=== PATIENT | male | born 1950 | race Caucasian/White ===

== ENCOUNTER 2024-08-06 03:51 | Emergency (ER) | payer MEDICAID, OTHER ==
[~2024-08-06] VITALS: Ht 200.7 cm; Wt 139.0 kg
--- NOTE | 2024-08-06 04:26 | ED.PDOC ---
History of Present Illness HPI Comments 73 y/o M, with a history of CHF, DMII w/neuropathy, HTN, and tobacco and walker/cane use, is BIBA for c/o left-rib and knee pain, with associated swelling to left-knee, s/p mechanical trip and fall, today. Patient endorses on sustaining a mechanical trip and fall at home, this morning. He comments on losing his balance and hitting both his recliner and floor on the way down, with no LOC or additional injuries reported. Patient refutes also any current blood thinner use in addition to having any prior symptoms. He denies any weakness, numbness, tingling, dizziness, or other associated symptoms or modifiers at this time. Chief Complaint: Fall Injury Time Seen by MD: 04:20 Primary Care Provider: GUNNAR REMEMBER Reviewed Notes: Nurses Notes, Correctional Officer Chief Notes, Medications, Allergies Allergies: Coded Allergies: Cephalexin (Unverified Allergy, Intermediate, 04/01/15) Information Source: Patient, Emergency Med Personnel Mode of Arrival: EMS Severity: Moderate Timing: Hours Duration: Since onset Prehospital treatment: 12 Lead EKG, Accucheck, Social Human Services Assistants Past Medical History PAST MEDICAL HISTORY: CHF, DM (type II w/neuropathy ), HTN Family History Family History: Unobtainable Social History Smoker: Cigarettes, Less Than 1 Pack/Day Alcohol: Denies ETOH Use Drugs: Denies Drug Use Lives In: Home Other Walker/cane use Musculoskeletal: reports: others (left-rib pain, left-knee pain with swelling ) All Other Systems: Reviewed and Negative (Comprehensive review of systems are negative unless otherwise stated in HPI or above ) Physical Exam General Appearance: No Apparent Distress, Obese HEENT: Normal ENT Inspection, Pharynx Normal, TMs Normal Neck: Full Range of Motion, Non-Tender, Normal, Normal Inspection Respiratory: Chest Non-Tender, Lungs Clear, No Accessory Muscle Use, No Respiratory Distress, Normal Breath Sounds Cardiovascular: No Edema, No JVD, No Murmur, No Gallop, Normal Peripheral Pulses, Regular Rate/Rhythm Breast Exam: Deferred Gastrointestinal: No Organomegaly, Non Tender, No Pulsatile Mass, Normal Bowel Sounds, Soft Genitalia: Deferred Pelvic: Deferred Rectal: Deferred Extremities: No calf tenderness, Normal capillary refill, No pedal edema, Swelling (left knee ), Tender (left knee ) Musculoskeletal : Location: Left Extremity Location: Chest (chest wall ), Knee Apperance: Normal, Tenderness Neurologic: Alert, geophysical laboratory chief II-XII nml as Tested, No Motor Deficits, Normal Affect, Normal Mood, No Sensory Deficits Cerebellar Function: Normal Reflexes: Normal Skin: Dry, Normal Color, Warm Lymphatic: No Adenopathy Was a procedure done? Was a procedure done?: No Differential Dx Considerations may include: fractures, dislocations, contusions, bruising, musculoskeletal pain, sprain X-Ray, Labs, Meds, VS Vital Signs Date Time Temp Pulse Resp B/P (MAP) Pulse Ox O2 Delivery O2 Flow Rate FiO2 08/06/24 03:51 98.6 66 18 125/80 (95) 97 98.6 Lab Test 08/06/24 04:32 Range/Units Urine Color Light-yellow Yellow Urine Clarity Clear Clear Urine pH 7.0 5.0-9.0 Urine Specific [place] 1.009 1.001-1.035 Urine Protein Negative Negative Urine Ketones Negative Negative Urine Blood Negative Negative /uL Urine Nitrite Negative Negative Urine Bilirubin Negative Negative Urine Urobilinogen Normal Negative mg/dL Urine Leukocyte Esterase Negative Negative /uL Urine RBC <1 0 - 3 /hpf Urine Microscopic WBC < 1 0-3 /HPF Urine Squamous Epithelial Cells Few <5 /hpf Urine Bacteria None seen None Seen /hpf Urine Glucose Normal Normal mg/dL [place] [address] Ph: [phone] DIAGNOSTIC IMAGING Diagnostic Imaging Report : [id number] Signed PATIENT: TUSHAR MATHIS ACCT: [id number] UNIT: [id number] : 1950 LOC: ER ROOM / BED: / AGE / SEX: 73 / M ADM STATUS: REG ER SERVICE ORDERING PHYSICIAN: RASHAWN ALLEN MD PROCEDURE(s): CX2CT - CHEST WITHOUT CONTRAST REASON: c/f multiple rib fractures ORDER NUMBER(s): [id number], ACCESSION NUMBER(s): [id number] EXAM: CT Chest Without Intravenous Contrast CLINICAL INDICATION: c/f multiple rib fractures TECHNIQUE: Axial computed tomography images of the chest without intravenous contrast. This CT exam was performed using one or more of the following dose reduction techniques: automated exposure control, adjustment of the mA and/or kV according to patient size, and/or use of iterative reconstruction technique. CONTRAST: RADIATION DOSE: CTDIvol = 29.14 mGy, DLP = 1482.23 mGy-cm COMPARISON: None FINDINGS: ARTIFACTS: Motion artifact. LUNGS AND PLEURAL SPACES: Unremarkable. No focal consolidation, pneumothorax or pleural effusion. HEART: Unremarkable. No cardiomegaly. No significant pericardial effusion. No significant coronary artery calcifications. THYROID: Multiple hypodense lesions of the thyroid gland. Further evaluation with targeted ultrasound is recommended. BONES/JOINTS: Cortical irregularity of the posterior left 6th, 7th, 8th and 9th ribs concerning for nondisplaced fractures. No dislocation. SOFT TISSUES: Unremarkable. VASCULATURE: Scattered calcified atherosclerotic disease of aorta. No thoracic aortic aneurysm. LYMPH NODES: Unremarkable. No enlarged lymph nodes. OTHER FINDINGS: . IMPRESSION: 1. No focal consolidation, pneumothorax or pleural effusion. 2. Multiple hypodense lesions of the thyroid gland. Further evaluation with targeted ultrasound is recommended. Mild cardiomegaly. 3. Cortical irregularity of the posterior left 6th, 7th, 8th and 9th ribs concerning for nondisplaced fractures. ATED BY: ALEXANDRA TILLEY MD DICTATED DATE/TIME: 08/06/24516 SIGNED BY: ALEXANDRA TILLEY MD SIGNED DATE/TIME: 08/06/24516 CC: [place] [address] Ph: [phone] DIAGNOSTIC IMAGING Diagnostic Imaging Report : [id number] Signed PATIENT: TUSHAR MATHIS ACCT: [id number] UNIT: [id number] : 1950 LOC: ER ROOM / BED: / AGE / SEX: 73 / M ADM STATUS: REG ER SERVICE ORDERING PHYSICIAN: RASHAWN ALLEN MD PROCEDURE(s): LKNE3 - L KNEE 3V XRAY REASON: fall ORDER NUMBER(s): [id number], ACCESSION NUMBER(s): [id number] EXAM: XY L KNEE 3V XRAY HISTORY: fall COMPARISON: None TECHNIQUE: 2 views of the left knee were performed. FINDINGS: Acute depressed fracture of the medial tibial plateau. There is lateral tibial plateau fracture. Lipohemarthrosis. IMPRESSION: 1. Acute depressed medial tibial plateau fracture and lateral tibial plateau fracture. Lipohemarthrosis. ATED BY: LEOBARDO FRIEDMAN MD DICTATED DATE/TIME: 08/06/24507 SIGNED BY: LEOBARDO FRIEDMAN MD SIGNED DATE/TIME: 08/06/24507 CC: Time of 1ST Reevaluation: 04:50 Reevaluation 1ST: Unchanged Patient Education/Counseling: Diagnosis, Treatment Family Education/Counseling: No Family Present Departure 1 Departure Time of Disposition: 05:27 (Patient with multiple tibial plateau fractures as well as multiple left rib fractures. We will admit patient for further workup and expert consultation) Impression: Primary Impression: Multiple rib fractures Qualified Codes: S22.42XA - Multiple fractures of ribs, left side, initial encounter for closed fracture Additional Impression: Tibial plateau fracture, left Qualified Codes: S82.142A - Displaced bicondylar fracture of left tibia, ini tial encounter for closed fracture Disposition: ADMITTED INPATIENT Admit to: Med Surg Condition: Serious Critical Care Note Critical Care Time?: No Stability Stability form required: No Heart Score Heart Score: Heart Score Response (Comments) Value History N/A 0 EKG N/A 0 Age N/A 0 Risk Factors N/A 0 Troponin N/A 0 Total 0 I personally scribed for RASHAWN ALLEN MD ([email or web address]) on 08/06/24 at 04:26. Electronically submitted by Deion Gregg ([email or web address]). I personally scribed for RASHAWN ALLEN MD ([email or web address]) on 08/06/24 at 05:27. Electronically submitted by Deion Gregg ([email or web address]). RASHAWN ALLEN MD Aug 06, 2024 04:26
[2024-08-06 04:49] LABS: Urine Bacteria None Seen /hpf (None Seen)
[2024-08-06 04:55] LABS: Urine Blood Negative /uL (Negative); Urine Clarity Clear (Clear); Urine Color Light-Yellow (Yellow); Urine Protein, UAD Negative (Negative); Urine Specific Gravity 1.009 (1.001-1.035); Urine Squamous Epithelial Cell FEW /hpf (<5); Urine Urobilinogen Normal (Negative); Urine WBC < 1 /HPF (0-3)
[2024-08-06 04:58] VITALS: PULSE 68; RESP 17; O2SAT 96
--- NOTE | 2024-08-06 05:10 | DVH ---
EXAM: XY L KNEE 3V XRAY HISTORY: fall COMPARISON: None TECHNIQUE: 2 views of the left knee were performed. FINDINGS: Acute depressed fracture of the medial tibial plateau. There is lateral tibial plateau fracture. Lip ohemarthrosis. IMPRESSION: 1. Acute depressed medial tibial plateau fracture and lateral tibial plateau fracture. Lipohemarthros is.
[2024-08-06] MEDS: HYDROcodone-ACET 5/325MG TAB PO ONE (05:15)
--- NOTE | 2024-08-06 05:19 | DVH ---
EXAM: CT Chest Without Intravenous Contrast CLINICAL INDICATION: c/f multiple rib fractures TECHNIQUE: Axial computed tomography images of the chest without intravenous contrast. This CT exam was performed using one or more of the following dose reduction techniques: automated exposure cont rol, adjustment of the mA and/or kV according to patient size, and/or use of iterative reconstruction technique. CONTRAST: RADIATION DOSE: CTDIvol = 29.14 mGy, DLP = 1482.23 mGy-cm COMPARISON: None FINDINGS: ARTIFACTS: Motion artifact. LUNGS AND PLEURAL SPACES: Unremarkable. No focal consolidation, pneumothorax or pleural effusion. HEART: Unremarkable. No cardiomegaly. No significant pericardial effusion. No significant forrester ry artery calcifications. THYROID: Multiple hypodense lesions of the thyroid gland. Further evaluation with targeted ultraso und is recommended. BONES/JOINTS: Cortical irregularity of the posterior left 6th, 7th, 8th and 9th ribs concerning for nondisplaced fractures. No dislocation. SOFT TISSUES: Unremarkable. VASCULATURE: Scattered calcified atherosclerotic disease of aorta. No thoracic aortic aneurysm. LYMPH NODES: Unremarkable. No enlarged lymph nodes. OTHER FINDINGS: . IMPRESSION: 1. No focal consolidation, pneumothorax or pleural effusion. 2. Multiple hypodense lesions of the thyroid gland. Further evaluation with targeted ultrasound is recommended. Mild cardiomegaly. 3. Cortical irregularity of the posterior left 6th, 7th, 8th and 9th ribs concerning for nondisplace d fractures.
[2024-08-06] MEDS: SODIUM CHLORIDE 0.9% 1,000 ML IV ONE (05:30)
[2024-08-06] MEDS: ONDANSETRON HCL 4 MG/2 ML VIAL IV ONE ×2 (05:30→10:25)
--- NOTE | 2024-08-06 06:46 | DVHINCON2 ---
AMIRA FLEMING NP 08/06/24 0646: Date of service: Aug 06, [address] Armenta Reason for Consultation Medical management History of Present Illness 73-year-old male with past medical history of CHF, DM, hypertension presents with complaints of left-sided thoracic and left knee injury s/p mechanical fall. Patient endorsed he was using his front wheel walker when he tripped hitting himself on his recliner and on the floor. Patient endorses swelling and pain to the left knee. During the emergency department evaluation x-ray of the left knee was positive for an acute left tibial plateau fracture. CT of the chest was also positive for multiple left rib fractures. At this time patient denies fevers, chills, syncope, LOC, dizziness, chest pain, shortness of breath, abdominal pain, nausea, vomiting, hematemesis, hematochezia, melena. Past Medical History CHF, DM, hypertension Allergies: Coded Allergies: Cephalexin (Unverified Allergy, Intermediate, 04/01/15) Review of Systems 10 systems reviewed and negative except as per HPI Vital Signs Vital Signs Date Time Temp Pulse Resp B/P (MAP) Pulse Ox O2 Delivery O2 Flow Rate FiO2 08/06/24 04:58 68 17 96 Nasal Cannula* 2 28 08/06/24 04:30 98.6 132/66 (88) 98.6 Physical Exam GENERAL: Patient appearing stated age, in mild acute distress. HEENT: Pupils equal and reactive to light and accommodation. Extraocular muscles intact. Mucous membranes moist. Conjunctivae pink. Anicteric sclerae. LUNGS: Bilateral air entry. No wheezes, rhonchi or rales. HEART: Regular rate and rhythm. Normal S1 and S2. ABDOMEN: BS normoactive, soft, and nondistended. No CVA tenderness. Left- sided thoracic tenderness. EXTREMITIES: No clubbing, cyanosis, edema. No calf tenderness. Pedal pulses 2+. Significant left knee joint swelling NEUROLOGICAL: The patient is alert and oriented times 3. CN II-XII intact. No focal deficits on gross sensory or motor examination. Labs/Diagnostic Data Labs Test 08/06/24 04:32 Range/Units Urine Color Light-yellow Yellow Urine Clarity Clear Clear Urine pH 7.0 5.0-9.0 Urine Specific [place] 1.009 1.001-1.035 Urine Protein Negative Negative Urine Ketones Negative Negative Urine Blood Negative Negative /uL Urine Nitrite Negative Negative Urine Bilirubin Negative Negative Urine Urobilinogen Normal Negative mg/dL Urine Leukocyte Esterase Negative Negative /uL Urine RBC <1 0 - 3 /hpf Urine Microscopic WBC < 1 0-3 /HPF Urine Squamous Epithelial Cells Few <5 /hpf Urine Bacteria None seen None Seen /hpf Urine Glucose Normal Normal mg/dL Assessment Acute left tibial Plateau fracture Multiple rib fractures Falls Plan/Recommendation Patient case was discussed in detail with [facility] designated orthopedic surgeon. Left lower extremity will be placed in knee immobilizer. [facility] upper caser has been consulted to arrange for temporary shelter facility placement. Acute fracture will be managed on an outpatient basis by orthopedic surgeon. Plan of care was discussed in detail with the patient who is in agreement with skilled nurse and facility placement. Plan discussed with: Patient ARNULFO BATEMAN MD 08/06/24 1616: Allergies: Coded Allergies: Cephalexin (Unverified Allergy, Intermediate, 04/01/15) Plan/Recommendation Patient's chart is reviewed and discussed with the nurse practitioner. I agree with the nurse practitioner's evaluation, documentation, assessment and care plan as outlined. AMIRA FLEMING NP Aug 06, 2024 06:46 ARNULFO BATEMAN MD Aug 06, 2024 16:16
[2024-08-06 07:30] VITALS: PULSE 74; RESP 16; O2SAT 97
[2024-08-06] MEDS: MORPHINE SULFATE 4 MG/ML SYR/VIAL IV ONE (10:25)
--- NOTE | 2024-08-06 11:55 | DVHINCON2 ---
Date of service: Aug 06, 2024 Reason for Consultation Left tibia plateau fracture History of Present Illness Mr. 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 Patient reports that he was using his walker to move around when his walker hit a chair causing him to trip and land onto his left knee and has been experiencing severe pain in the inability to bear weight on that side since the incident. Patient was brought to the emergency department where he was found to have a left tibial plateau fracture. Patient is otherwise feeling well denying any head trauma, loss of consciousness, chest pain, shortness of breath, nausea, vomiting, fever, or chills. Past Medical History Hypertension, CHF, and diabetes Past Surgical History Denies Family History Non contributory Social History Patient denies smoking, EtOH, or illicit substance abuse Allergies: Coded Allergies: Cephalexin (Unverified Allergy, Intermediate, 04/01/15) Review of Systems 10 point review of systems negative except as per HPI Vital Signs Vital Signs Date Time Temp Pulse Resp B/P (MAP) Pulse Ox O2 Delivery O2 Flow Rate FiO2 08/06/24 10:46 81 16 120/54 08/06/24 09:04 96 08/06/24 07:30 Room Air* 0 21 08/06/24 07:30 98.7 98.7 Physical Exam General appearance: A&O x4 in no acute distress HEENT: Normal ENT inspection, pharynx normal, TMs normal Neck: Full range of motion, nontender, normal inspection Respiratory: Chest nontender, without accessory muscle use, no respiratory distress Cardiovascular: No edema, no JVD, normal peripheral pulses Gastrointestinal: Soft, nontender, no organomegaly. Musculoskeletal: Left knee range of motion grossly limited with pain on slight movement, in knee immobilizer, no calf tenderness, normal capillary refill, moderate edema, neurovascularly intact. Skin: Dry, normal color, warm Lymphatic: No adenopathy Labs/Diagnostic Data Labs Test 08/06/24 04:32 Range/Units Urine Color Light-yellow Yellow Urine Clarity Clear Clear Urine pH 7.0 5.0-9.0 Urine Specific [place] 1.009 1.001-1.035 Urine Protein Negative Negative Urine Ketones Negative Negative Urine Blood Negative Negative /uL Urine Nitrite Negative Negative Urine Bilirubin Negative Negative Urine Urobilinogen Normal Negative mg/dL Urine Leukocyte Esterase Negative Negative /uL Urine RBC <1 0 - 3 /hpf Urine Microscopic WBC < 1 0-3 /HPF Urine Squamous Epithelial Cells Few <5 /hpf Urine Bacteria None seen None Seen /hpf Urine Glucose Normal Normal mg/dL Left knee x-ray reviewed and demonstrated: Acute depressed medial tibial plateau fracture and lateral tibial plateau fracture. Lipohemarthrosis. Assessment Left displaced tibial plateau fracture Plan/Recommendation I had a lengthy discussion with the patient regarding nonoperative versus operative management and after discussing his case and reviewing his imaging studies with Dr. Sadler we have recommended an ORIF of his left displaced tibial plateau fracture. I discussed all of the risks and complications involved with surgery including but not limited to bleeding, infection, nerve injury, chronic pain, nonunion, malunion, need for further surgery, blood clots, DVT, PE, cardiac and pulmonary complications, and even . He understood and agreed to proceed with the surgery. We will plan to undergo surgery next week with Dr. Morris, we can plan [facility] and can be brought back to the hospital on Saturday for admission to undergo surgery. Thank you for allowing us to participate in the care of your patient. Plan discussed with: Patient CONNER DRUMMOND CYNDI Aug 06, 2024 11:55
[2024-08-06 12:00] VITALS: BP 108/54; PULSE 75; RESP 16; O2SAT 98
--- NOTE | 2024-08-08 11:51 | DVHSR ---
APPROVED REPORT EXAM: LIMITED Two-dimensional and M-mode echocardiogram with Doppler and color Doppler. Blood Pressure: 119/52 mmHg INDICATION Pre-Op RISK FACTORS Obesity: Height: 6' 7", Weight: 306 DIMENSIONS LVDd5.7 (3.8-5.7cm)LA (2D)4.6 (1.9-4.0cm)Aortic Root3.9 (2.0-3.7cm) LVDs4.0 (2.5-4.0cm)LA (MM) (1.9-4.0cm)Aortic Cusp Exc2.1 (1.5-2.0cm) EF (%) 56.0 (55-70%)Rt. Atrium6.4 (1.9-4.0cm)Asc. Aorta cm IVSd1.3 (0.7-1.1cm)RV (D) (1.8-2.4cm) PWd1.2 (0.7-1.1cm) Mitral Valve MitralMitral Stenosis E wave1.30m/sMV Mean GR.mmHg A wave0.80m/sMV Peak GR.mmHg E/A ratio1.62D MVAcm2 Aortic Valve Aortic ValveAortic Stenosis V10.80m/[place] Mean GR.7mmHg V21.70m/[place] Peak GR.12mmHg LVOT Diameter2.8 (1.8-2.4cm)Doppler AVA2.90cm2 Pulmonic Valve V20.90m/s Tricuspid Valve TR Velocity2.40m/s [id number] Other Information Quality : Technically LimitedRhythm : Technically limited study due to body habitus. Conclusion Technically good study. Undetermined rhythm. Biatrial enlargement. Aortic root enlargement. Mild LV enlargement. Mild aortic sclerosis with thickening of the left coronary cusp. Left ventricular systolic performance is preserved at 55% with normal RV function. Mild TR. No pericardial effusion masses or vegetations.
== END 2024-08-06 15:43 | disposition home or self-care (01) ==
LOC: ER 03:51 → EDBD 03:51 → ER 15:43
DX: S22.42XA Multiple fractures of ribs, left side, initial encounter for closed fracture (principal); S82.142A Displaced bicondylar fracture of left tibia, initial encounter for closed fracture; I11.0 Hypertensive heart disease with heart failure; I50.9 Heart failure, unspecified; E11.40 Type 2 diabetes mellitus with diabetic neuropathy, unspecified; F17.210 Nicotine dependence, cigarettes, uncomplicated; Z88.1 Allergy status to other antibiotic agents; W01.190A Fall on same level from slipping, tripping and stumbling with subsequent striking against furniture, initial encounter; Y93.89 Activity, other specified; Y92.098 Other place in other non-institutional residence as the place of occurrence of the external cause; Y99.8 Other external cause status
CPT/HCPCS: 29505; 71250; 73562; 81001; 93306; 96361; 96374; 96375; 96376; 99285; J2270; J2405; J7030